=== PATIENT | male | born 1975 | race Caucasian/White ===

== ENCOUNTER → 2020-11-14 | Outpatient (CLI) | payer OTHER ==
[2020-11-14 19:16] LABS: Basophils # (A) 0.03 X 10*3/uL (0.00-0.10); Basophils % (A) 0.3 %; Eosinophils # (A) 0 X 10*3/uL (0.04-0.35); Eosinophils % (A) 0 %; HCT 42.4 % (39.6-50.0); HGB 13.5 g/dL (13.0-17.0); Lymphocytes # (A) 0.86 X 10*3/uL (0.90-5.00); MCH 29.6 pg (27.0-32.0); MCHC 31.8 g/dL (32.0-37.0); Mean Platelet Volume 12.9 fL (9.5-12.2); Monocytes # (A) 0.52 X 10*3/uL (0.20-1.00); Monocytes % (A) 5.4 %; Neutrophils % (A) 84.9 %; Platelet Count 243 X 10*3/uL (140-440); RBC 4.56 X 10*6/uL (4.40-5.60); RDW 14.6 % (11.5-14.5); WBC 9.55 X 10*3/uL (4.50-10.00)
[2020-11-14 19:31] LABS: ALT 28 U/L (10-49); AST 23 U/L (14-35); African American GFR (CKD) 106.4 (60.0-200.0); Albumin/Globulin Ratio 2.45 (1.60-3.17); Alkaline Phosphatase 64 U/L (41-126); Calcium 10.2 mg/dL (8.7-10.3); Carbon Dioxide 24.4 mmol/L (21.6-31.8); Chloride 102 mmol/L (96-109); Glucose 115 mg/dL (70-110); Non-African American GFR(CKD) 91.8 (60.0-200.0); Potassium 4.8 mmol/L (3.5-5.5); Rheumatoid Factor, Qnt <4 IU/mL (0-15); Sodium 136 mmol/L (135-145); Total Protein 6.9 g/dL (6.2-8.2)
[2020-11-14 21:17] LABS: Erythrocyte Sedimentation Rate 7 mm/Hr (0-15)
[2020-11-14 21:36] LABS: Anti-DNA, DS unit <1.0 IU/mL; DNA Double-Stranded NEGATIVE (NEGATIVE)
[2020-11-14 23:55] LABS: Hemoglobin A1C 5.1 % (4.0-6.0)
== END | disposition home or self-care (01) ==
LOC: LABWHC1 14:39
PROVIDERS: ATTEND Internal Medicine
DX: D86.9 Sarcoidosis, unspecified (principal); D89.9 Disorder involving the immune mechanism, unspecified; R53.1 Weakness
CPT/HCPCS: 36415; 80053; 82164; 82533; 83036; 84439; 84443; 85025; 85652; 86038; 86140; 86225; 86431

== ENCOUNTER → 2020-11-23 | Outpatient (CLI) | payer OTHER ==
--- NOTE | 2020-11-23 12:52 | CT ---
EXAMINATION TYPE: CT chest w con DATE OF EXAM: 11/23/2020 COMPARISON: Chest x-ray 9 days ago HISTORY: Dyspnea CT DLP: 643.10 mGycm. Automated Exposure Control for Dose Reduction was Utilized. TECHNIQUE: CT scan of the thorax is performed following with IV Contrast, patient injected with 100 ml mL of Isovue 300. FINDINGS: LUNGS: There is mild left lung basilar scarring as suspected on chest x-ray. No suspicious focal cons olidation or groundglass opacity. No pleural effusion or pneumothorax seen bilaterally. No concerning pulmonary nodules or masses. There is azygos lobe/fissure which is normal variant. MEDIASTINUM: There are no greater than 1 cm hilar or mediastinal lymph nodes. Small to tiny pericardi al effusion is seen. This measures up to 7 mm in thickness. No cardiomegaly. OTHER: Mild generalized fat replaced atrophy and visualized pancreas. IMPRESSION: Mild left basilar parenchymal scarring. No suspicious acute pulmonary process.
== END | disposition home or self-care (01) ==
LOC: RADCTMAIN 11:35
PROVIDERS: ATTEND Internal Medicine
DX: J98.4 Other disorders of lung (principal)
CPT/HCPCS: 71260; Q9967

== ENCOUNTER → 2021-01-16 | Outpatient (CLI) | payer OTHER | END | disposition home or self-care (01) | LOC: LABWHC1 14:13 | PROVIDERS: ATTEND Internal Medicine Endocrinology, Diabetes & Metabolism | DX: E27.3 Drug-induced adrenocortical insufficiency (principal) | CPT/HCPCS: 36415; 84153 ==

== ENCOUNTER → 2023-02-01 | Outpatient (CLI) | payer OTHER ==
[2023-02-01 22:31] LABS: ALT 24 U/L (4-49); AST 35 U/L (17-59); African American GFR (CKD) >90 (>60 ml/min/1.73 sqM); Albumin 4.9 g/dL (3.5-5.0); Albumin/Globulin Ratio 1.7; Alkaline Phosphatase 72 U/L (38-126); Anion Gap 11 mmol/L; Blood Urea Nitrogen 17 mg/dL (9-20); Calcium 9.4 mg/dL (8.4-10.2); Carbon Dioxide 25 mmol/L (22-30); Chloride 102 mmol/L (98-107); GGT 26 U/L (15-73); Globulin 2.9 g/dL; Non-African American GFR(CKD) >90 (>60 ml/min/1.73 sqM); Sodium 138 mmol/L (137-145); Total Protein 7.8 g/dL (6.3-8.2)
[2023-02-01 22:40] LABS: T4, Free (Free Thyroxine) 1.44 ng/dL (0.78-2.19)
[2023-02-02 01:49] LABS: HCT 45.1 % (39.6-50.0); HGB 14.8 d/dL (12.0-15.0); MCH 31.4 pg (27.0-32.0); MCHC 32.8 d/dL (32.0-37.0); MCV 95.6 FL (80.0-97.0); Mean Platelet Volume 12.5 FL (9.5-12.2); NRBC Per 100 WBC 0 X 10*3/uL (0.00-0.01); Platelet Count 220 X 10*3/uL (140-440); RBC 4.72 X 10*6/uL (4.40-5.60); RDW 12.6 % (11.5-14.5); WBC 5.57 X 10*3/uL (4.50-10.00)
[2023-02-02 02:16] LABS: Insulin Level 2.3 mIU/mL (3.0-25.0)
[2023-02-02 02:17] LABS: Erythrocyte Sedimentation Rate 5 mm/Hr (0-15)
[2023-02-02 02:30] LABS: Estradiol 29.5 pg/mL; Rheumatoid Factor, Qnt <15 IU/mL (0-15)
[2023-02-02 04:47] LABS: Follicle Stimulating Hormone 3.5 mIU/mL; Luteinizing Hormone 5.7 mIU/mL
== END | disposition home or self-care (01) ==
LOC: LABWHC1 14:25
PROVIDERS: ATTEND Internal Medicine Hematology & Oncology
DX: E03.9 Hypothyroidism, unspecified (principal); E78.70 Disorder of bile acid and cholesterol metabolism, unspecified; R53.83 Other fatigue; D50.8 Other iron deficiency anemias; R94.5 Abnormal results of liver function studies; Z13.1 Encounter for screening for diabetes mellitus; R65.10 Systemic inflammatory response syndrome (SIRS) of non-infectious origin without acute organ dysfunction; D72.89 Other specified disorders of white blood cells; E55.9 Vitamin D deficiency, unspecified; E72.11 Homocystinuria
CPT/HCPCS: 36415; 80053; 82306; 82465; 82670; 82728; 82977; 83001; 83002; 83036; 83090; 83525; 83718; 84153; 84270; 84403; 84432; 84439; 84443; 84478; 84481; 84550; 85027; 85652; 86038; 86431; 86800

== ENCOUNTER → 2023-02-08 | Outpatient (CLI) | payer OTHER | END | disposition home or self-care (01) | LOC: LABWHC1 12:34 | DX: R53.83 Other fatigue (principal) | CPT/HCPCS: 36415; 82626; 84305 ==

== ENCOUNTER → 2024-09-29 | Outpatient (CLI) | payer OTHER ==
--- NOTE | 2024-09-29 12:24 | XR ---
EXAMINATION TYPE: XR lumbosacral spine min 4V DATE OF EXAM: 09/29/2024 11:23 AM COMPARISON: None. CLINICAL INDICATION: Male, 49 years old with history of Z00.01 ENCOUNTER FOR M54.9 DORSALGIA, UNSPEC IFIED, pain TECHNIQUE: Frontal, lateral, and bilateral oblique images of the lumbar spine are obtained. FINDINGS: There are 5 lumbar type vertebral bodies identified. The lumbar spine shows satisfactory alignment without evidence of acute fracture or dislocation. Vertebral body heights are within normal limits. There is moderate disc space narrowing with mild to moderate spurring at the L4-L5 level. Th ere is mild/moderate spurring at the L5-S1 level . The overlying soft tissue appears unremarkable. IMPRESSION: As above. [facility], , 09/29/2024 12:21 PM
--- NOTE | 2024-09-29 12:25 | XR ---
EXAMINATION TYPE: XR thoracic spine 2V DATE OF EXAM: 09/29/2024 11:27 AM COMPARISON: None. CLINICAL INDICATION: Male, 49 years old with history of Z00.01 ENCOUNTER FOR M54.9 DORSALGIA, UNSPEC IFIED, pain TECHNIQUE: Frontal, lateral, and swimmer's view of thoracic spine are obtained. FINDINGS: Thoracic spine show satisfactory and straightened alignment without evidence of acute fract ure or dislocation. Vertebral body heights and disc space heights are preserved. Visualized ribs are intact bilaterally. An azygos lobe/fissure is incidentally noted. IMPRESSION: As above. [facility], , 09/29/2024 12:22 PM
--- NOTE | 2024-09-29 12:27 | XR ---
EXAMINATION TYPE: XR cervical spine comp DATE OF EXAM: 09/29/2024 11:25 AM COMPARISON: None. CLINICAL INDICATION: Male, 49 years old with history of Z00.01 ENCOUNTER FOR M54.9 DORSALGIA, UNSPEC IFIED, pain TECHNIQUE: Frontal, lateral, oblique, swimmers, and open mouth view of the cervical spine are obtaine d. FINDINGS: The cervical spine is visualized in its entirety from C1 thru the top of T1 level, there i s grade 1 retrolisthesis of C4 on C5. The pre-vertebral soft tissue appears within normal limits. T he C1-C2 articulation is within normal limits on the open mouth view. Vertebral body heights are with in normal limits. There is moderate multilevel disc space narrowing seen C3-C4 through the C6-C7 leve ls. There is moderate multilevel anterior and lateral spurring. Oblique images suggest narrowing of t he left C4-C5 and C5-C6 along with right C3-C4 level due to uncovertebral facet spurring. Overlying s oft tissue is unremarkable. IMPRESSION: As above. [facility], , 09/29/2024 12:24 PM
== END | disposition home or self-care (01) ==
LOC: RADXRMAIN 10:22
PROVIDERS: ATTEND Pediatrics
DX: Z00.01 Encounter for general adult medical examination with abnormal findings (principal); M50.21 Other cervical disc displacement, high cervical region; M43.12 Spondylolisthesis, cervical region
CPT/HCPCS: 72050; 72070; 72110